=== PATIENT | female | born 2000 | race Caucasian/White ===

== ENCOUNTER 2018-05-19 20:48 | Emergency (ER) | payer OTHER ==
[2018-05-19] MEDS ORDERED: NS 1,000 ML IV ONE (22:00)
[2018-05-19] MEDS ORDERED: METOCLOPRAMIDE 10 MG/2 ML VIAL IVP ONE (22:00)
[2018-05-19] MEDS ORDERED: KETOROLAC 30 MG/1 ML SDV IVP ONE (22:00)
[2018-05-19] MEDS ORDERED: DEXAMETHASONE 10 MG/ML VIAL IVP ONE (22:00)
[2018-05-19] MEDS ORDERED: DEXAMETHASONE 4 MG/ML VIAL ONE (22:08)
--- NOTE | 2018-05-19 22:11 | EDPHY ---
H & P Time Seen by Provider: 05/19/18 21:46 HPI/ROS: CHIEF COMPLAINT: Headache, persistent HISTORY OF PRESENT ILLNESS: Patient started having headache a earlier this week on Tuesday. It is bifrontal and she feels like her eyes were throbbing and it is worse with light and associated with nausea. Her grandfather has migraine headaches but otherwise negative family history for intracranial. She has been a lot of time Tuesday looking at her computer and Tuesday she had nausea and vomiting. she saw her primary care provider and was encouraged to hydrate try [id number] medications went back today and had 2 shots, the names of which she does not know. She presents with persistent headache which is moderate, described above REVIEW OF SYSTEMS: Eye: No aura, no blurry vision or double vision. ENT: no sore throat or earache Cardiac: no chest pain or syncope Pulmonary: no cough or SOB Abdomen: No abdominal pain or diarrhea Musculoskeletal: A little bit of neck pain but no neck stiffness Skin: no rash Neuro: HPI Constitutional: no fever : no urinary symptoms A comprehensive 10 point review of systems is otherwise negative aside from elements mentioned in the history of present illness. PAST MEDICAL HISTORY: Negative Family history: Negative for aneurysm or migraine headache except as noted in HPI Social history: Student, no IV drug abuse General Appearance: Alert and conversant, cooperative. Eyes: No scleral icterus. Pupils equal reactive extraocular motion intact. ENT, Mouth: Normal mucous membranes. Normal tympanic membranes, normal pharynx. No facial swelling or tenderness. Respiratory: Normal respiratory effort, breath sounds equal, lungs are clear to auscultation. Cardiovascular: Regular rate and rhythm. Gastrointestinal: Abdomen is soft and non tender. Neurological: Alert, face symmetric, normal motor and sensory in extremities. Normal [id number] bilaterally, no pronator drift. Speech fluent. Skin: Warm and dry, no rashes. Musculoskeletal: No neck stiffness or meningeal signs. Psychiatric: Not agitated. Emergency Department course/MDM: Likely migraine, will treat with IV Toradol and dexamethasone, IV Benadryl, promethazine. CT head discussed and consented for persistent headache for 5 days. 2251; normal head CT per Dr. Celeste. She feels better at this time, is comfortable going home and follow up with her primary care doctor. I think [employer] infection or subarachnoid is unlikely. Smoking Status: Never smoked Constitutional: Initial Vital Signs Temperature (C) 36.8 C 05/19/18 21:03 Heart Rate 85 05/19/18 21:03 Respiratory Rate 18 05/19/18 21:03 Blood Pressure 124/82 H 05/19/18 21:03 O2 Sat (%) 96 05/19/18 21:03 Allergies/Adverse Reactions: No Known Allergies Allergy (Unverified 05/19/18 21:03) Home Medications: Medication Instructions Recorded MIRENA 05/19/18 Medical Decision Making - Diagnostics Imaging: Discussed imaging studies w/ call out operator Radiologist Differential Diagnosis: Differential diagnosis considered for headache including but not limited to subarachnoid hemorrhage, migraine headache, tension headache and infectious causes such as meningitis, pharyngitis and sinusitis. - Data Points Medications Given: Discontinued Medications Dexamethasone (Decadron Injection) 10 mg IVP EDNOW ONE Stop: 05/19/18 22:01 Last Admin: 05/19/18 22:15 Dose: 10 mg Diphenhydramine HCl (Benadryl Injection) 25 mg IVP EDNOW ONE Stop: 05/19/18 22:01 Last Admin: 05/19/18 22:15 Dose: 25 mg Sodium Chloride (Ns) 1,000 mls @ 0 mls/hr IV ONCE ONE; Wide Open PRN Reason: Protocol Stop: 05/19/18 22:01 Last Admin: 05/19/18 22:15 Dose: 1,000 mls Ketorolac Tromethamine (Toradol) 15 mg IVP EDNOW ONE Stop: 05/19/18 22:01 Last Admin: 05/19/18 22:15 Dose: 15 mg Metoclopramide HCl (Reglan Injection) 10 mg IVP EDNOW ONE Stop: 05/19/18 22:01 Last Admin: 05/19/18 22:16 Dose: 10 mg Departure - Departure Disposition: Home, Routine, Self-Care Clinical Impression: Headache Qualifiers: Headache type: unspecified Headache chronicity pattern: acute headache Intractability: not intractable Qualified Code(s): R51 - Headache Condition: Good Instructions: Acute Headache (ED) Referrals: Keke Hatfield MD [[facility] [place] - As per Instructions
[2018-05-19 23:06] VITALS: BP 118/68
== END 2018-05-19 23:06 | disposition home or self-care (01) ==
DX: R51 Headache (principal); E86.9 Volume depletion, unspecified
CPT/HCPCS: 96374; J1100; J1200; J1885; J2765

== ENCOUNTER 2018-11-16 16:53 | Emergency (ER) | payer OTHER ==
--- NOTE | 2018-11-16 17:51 | EDPHY ---
H & P Stated Complaint: RLQ abd pain, ovarian mass on US per UC Time Seen by Provider: 11/16/18 17:50 HPI/ROS: HPI: This is a 18-year-old female who presents with Chief Complaint: RLQ abd pain, ovarian mass on US per UC Location: Right lower quadrant abdominal Quality: Pain Duration: Since 9:00 a.m. Signs and Symptoms: no fever, no nausea, no vomiting, no hematemesis, no blood in stool, no abdominal bloating, no diarrhea, no back pain, no urinary symptoms , no vaginal bleeding/discharge, no indigestion, no chest pain, no shortness of breath Timing: Acute, constant Severity: 01/17 Context: Patient is a student at [employer]. Does not have regular menses as has an Merina IUD. Complains of waking up this morning around 9:00 a.m. With moderate to severe right lower quadrant pain that is nonradiating in nature. She denies fever, nausea, vomiting, urinary symptoms, back pain, vaginal bleeding, vaginal discharge. She does work out very frequently including abdomen exercises. Last bowel movement yesterday. Reports eating and drinking well. Went to [facility] and had a pelvic ultrasound performed that showed 4.3 cm bilobed solid-appearing mass within the right adnexa to superior to the right ovary, benign-appearing left ovarian follicle cyst and IUD in appropriate position; abdominal ultrasound was unable to visualize the appendix. Modifying Factors: Comment: ROS: A comprehensive 10 system review of systems is otherwise negative aside from elements mentioned in the history of present illness. MEDICAL/SURGICAL/SOCIAL HISTORY: Medical history: Migraine headaches, depression. Does not take any regular medications. Maribel IUD. Surgical history: Denies Social history: Student at [employer]. Nonsmoker. Family history noncontributory. CONSTITUTIONAL: Extremely well-appearing young adult white female, awake and alert, no obvious distress HEENT: Atraumatic and normocephalic, PERRL, EOMI. Nares patent; no rhinorrhea; no nasal mucosal edema. Tympanic membranes clear. Oropharynx clear, no exudate and moist pink mucosa. Airway patent. No lymphadenopathy. No meningismus. Cardiovascular: Normal S1/S2, regular rate, regular rhythm, without murmur rub or gallop. PULMONARY/CHEST: Symmetrical and nontender. Clear to auscultation bilaterally. Good air movement. No accessory muscle usage. ABDOMEN: Soft, nondistended, moderate right lower quadrant tenderness to deep palpation, no rebound, no guarding, no peritoneal signs, no masses or organomegaly. No CVAT. Bowel sounds heard x4 quadrants. Negative Rovsing sign. Negative psoas sign. EXTREMITIES: 2/2 pulses, strength 5/5, no deformities, no clubbing, no cyanosis or edema. NEUROLOGICAL: no focal neuro deficits. GCS 15. SKIN: Warm and dry, no erythema. no rash. Good capillary refill. Source: Patient Exam Limitations: No limitations - Personal History Current Tetanus/Diphtheria Vaccine: Yes Current Tetanus Diphtheria and Acellular Pertussis (TDAP): Yes - Medical/Surgical History Hx Asthma: No Hx Chronic Respiratory Disease: No Hx Diabetes: No Hx Cardiac Disease: No Hx Renal Disease: No Hx Cirrhosis: No Hx Alcoholism: No Hx HIV/AIDS: No Hx Splenectomy or Spleen Trauma: No Other PMH: migraines, - Social History Smoking Status: Never smoked Constitutional: Initial Vital Signs Temperature (C) 36.9 C 11/16/18 17:02 Heart Rate 93 11/16/18 17:02 Respiratory Rate 16 11/16/18 17:02 Blood Pressure 132/83 H 11/16/18 17:02 O2 Sat (%) 96 11/16/18 17:02 O2 Delivery Mode Room Air Allergies/Adverse Reactions: No Known Allergies Allergy (Unverified 11/16/18 17:02) Home Medications: Medication Instructions Recorded MIRENA 05/19/18 FLUoxetine 11/16/18 Medical Decision Making - Diagnostics Imaging Results: Imaging Impressions Abdomen CT 11/16/18 17:57 Impression: 1. Normal CT appearance of the appendix. 2. There is no evidence of a mechanical bowel obstruction, free air, or ascites. 3. There is an intrauterine device present. 4. There is a 3.6 cm simple-appearing left ovarian cyst, and the right ovary is seen in the limited fashion, and appears to contain a small involuting hemorrhagic follicle. Correlation with today's earlier ultrasound is suggested, which would be more sensitive in evaluation of the right ovary, and consider follow up sonography at a different point in a future menstrual cycle in the next 6-8 weeks. Findings were discussed with Mariama Burciaga PA-C at 19:39, on 11/16/2018. ED Course/Re-evaluation: Vital signs reviewed and stable upon arrival. No systemic signs. IV access, laboratory studies, urinalysis, CT abdomen and pelvis scan ordered Given 1 L normal saline, IV Toradol 30 mg and IV promethazine 12.5 mg 1846: Laboratory studies reviewed. WBC 12 K with left shift. No signs of anemia, platelet dysfunction, electrolyte disturbance, acute kidney injury, elevated LFTs, pancreatitis, . 1855: Urinalysis shows 2+ blood, trace LE 1745: Called by Dr. Umaña, radiologist, who reports that CT abdomen and pelvis scan shows hemorrhagic follicle measuring 2.2 cm in the right ovary and 3.6 cm left ovarian simple cyst. No ovarian torsion. No appendicitis. Moderate stool burden. Recommends repeat ultrasound in 6-8 weeks. Long discussion at bedside regarding results per patient. She has a primary care provider at [facility]. She is tolerating p.o. With adequate pain relief And will be discharged home. This patient was seen under the supervision of my secondary supervising physician. I evaluated and cared for this patient with attending. Differential Diagnosis: Abdominal pain including but not limited to appendicitis, cholecystitis, gastritis and urinary tract infection. Abdominal pain in a female including but not limited to ovarian cyst, pelvic inflammatory disease, ovarian torsion, urinary tract infection, and appendicitis. - Data Points Laboratory Results: Laboratory Results 11/16/18 17:57 11/16/18 17:43 11/16/18 11/16/18 11/16/18 18:10 17:57 17:43 WBC 12.09 10^3/uL H 10^3/uL (3.80-9.50) RBC 5.13 10^6/uL 10^6/uL (4.18-5.33) Hgb 15.8 g/dL g/dL (12.6-16.3) Hct 46.2 % % (38.0-47.0) MCV 90.1 fL fL (81.5-99.8) MCH 30.8 pg pg (27.9-34.1) MCHC 34.2 g/dL g/dL (32.4-36.7) RDW 12.6 % % (11.5-15.2) Plt Count 294 10^3/uL 10^3/uL (150-400) MPV 9.4 fL fL (8.7-11.7) Neut % (Auto) 80.3 % H % (39.3-74.2) Lymph % (Auto) 12.5 % L % (15.0-45.0) [place] % (Auto) 6.5 % % (4.5-13.0) Eos % (Auto) 0.1 % L % (0.6-7.6) Baso % (Auto) 0.2 % L % (0.3-1.7) Nucleat RBC Rel Count 0.0 % % (0.0-0.2) Absolute Neuts (auto) 9.72 10^3/uL H 10^3/uL (1.70-6.50) Absolute Lymphs (auto) 1.51 10^3/uL 10^3/uL (1.00-3.00) Absolute Monos (auto) 0.78 10^3/uL 10^3/uL (0.30-0.80) Absolute Eos (auto) 0.01 10^3/uL L 10^3/uL (0.03-0.40) Absolute Basos (auto) 0.02 10^3/uL 10^3/uL (0.02-0.10) Absolute Nucleated RBC 0.00 10^3/uL 10^3/uL (0-0.01) Immature Gran % 0.4 % % (0.0-1.1) Immature Gran # 0.05 10^3/uL 10^3/uL (0.00-0.10) Sodium Potassium Chloride Carbon Dioxide Anion Gap BUN Creatinine Estimated GFR Glucose Calcium Total Bilirubin Conjugated Bilirubin Unconjugated Bilirubin AST ALT Alkaline Phosphatase Total Protein Albumin Lipase Beta HCG, Qual NEGATIVE Urine Color YELLOW Urine Appearance CLEAR Urine pH 7.0 (5.0-7.5) Ur Specific [place] 1.009 (1.002-1.030) Urine Protein NEGATIVE (NEGATIVE) Urine Ketones NEGATIVE (NEGATIVE) Urine Blood 2+ H (NEGATIVE) Urine Nitrate NEGATIVE (NEGATIVE) Urine Bilirubin NEGATIVE (NEGATIVE) Urine Urobilinogen NEGATIVE EU EU (0.2-1.0) Ur Leukocyte Esterase TRACE H (NEGATIVE) Urine RBC 1-3 /hpf /hpf (0-3) Urine WBC 1-3 /hpf /hpf (0-3) Ur Epithelial Cells TRACE /lpf /lpf (NONE-1+) Urine Bacteria TRACE /hpf H /hpf (NONE SEEN) Urine Glucose NEGATIVE (NEGATIVE) 11/16/18 17:43 WBC RBC Hgb Hct MCV MCH MCHC RDW Plt Count MPV Neut % (Auto) Lymph % (Auto) [place] % (Auto) Eos % (Auto) Baso % (Auto) Nucleat RBC Rel Count Absolute Neuts (auto) Absolute Lymphs (auto) Absolute Monos (auto) Absolute Eos (auto) Absolute Basos (auto) Absolute Nucleated RBC Immature Gran % Immature Gran # Sodium 138 mEq/L mEq/L (135-145) Potassium 3.8 mEq/L mEq/L (3.5-5.2) Chloride 101 mEq/L mEq/L (97-110) Carbon Dioxide 23 mEq/l mEq/l (22-31) Anion Gap 14 mEq/L mEq/L (6-14) BUN 10 mg/dL mg/dL (7-23) Creatinine 0.7 mg/dL mg/dL (0.6-1.0) Estimated GFR > 60 Glucose 97 mg/dL mg/dL (70-100) Calcium 10.4 mg/dL mg/dL (8.5-10.4) Total Bilirubin 0.7 mg/dL mg/dL (0.1-1.4) Conjugated Bilirubin 0.2 mg/dL mg/dL (0.0-0.5) Unconjugated Bilirubin 0.5 mg/dL mg/dL (0.0-1.1) AST 24 IU/L IU/L (14-46) ALT 31 IU/L IU/L (9-52) Alkaline Phosphatase 61 IU/L IU/L (38-126) Total Protein 8.2 g/dL g/dL (6.3-8.2) Albumin 5.2 g/dL H g/dL (3.5-5.0) Lipase 62 IU/L IU/L (23-300) Beta HCG, Qual Urine Color Urine Appearance Urine pH Ur Specific [place] Urine Protein Urine Ketones Urine Blood Urine Nitrate Urine Bilirubin Urine Urobilinogen Ur Leukocyte Esterase Urine RBC Urine WBC Ur Epithelial Cells Urine Bacteria Urine Glucose Medications Given: Discontinued Medications Sodium Chloride (Ns) 1,000 mls @ 0 mls/hr IV EDNOW ONE; Wide Open PRN Reason: Protocol Stop: 11/16/18 17:58 Last Admin: 11/16/18 18:20 Dose: 1,000 mls Ketorolac Tromethamine (Toradol) 30 mg IVP EDNOW ONE Stop: 11/16/18 17:58 Last Admin: 11/16/18 18:20 Dose: 30 mg Ondansetron HCl (Zofran) 4 mg IVP EDNOW ONE Stop: 11/16/18 18:25 Last Admin: 11/16/18 18:27 Dose: 4 mg Promethazine HCl (Phenergan) 12.5 mg IVP EDNOW ONE Stop: 11/16/18 17:58 Last Admin: 11/16/18 18:22 Dose: Not Given Departure - Departure Disposition: Home, Routine, Self-Care Clinical Impression: Bilateral ovarian cysts, Constipation by delayed colonic transit Condition: Good Instructions: Ovarian Cyst (ED), Constipation (ED), High Fiber Diet (ED), Ruptured Ovarian Cyst (ED) Additional Instructions: Consume a minimum of 8-10 glasses of water or electrolyte fluid replacement drinks that include Gatorade, Powerade, Pedialyte. Eat a bland diet for the next 48 hours and then slowly advance as tolerated. Take MiraLax daily for the next 3 days and then daily as needed for constipation. Follow-up with PCP/OBGYN in 6-8 weeks for repeat ultrasound for interval change of bilateral ovarian cyst. Referrals: Marge Zhang MD [Primary Care Provider] - As per Instructions
[2018-11-16] MEDS ORDERED: PROMETHAZINE HCL 25 MG/ML INJ IVP ONE (17:57)
[2018-11-16] MEDS ORDERED: NS 1,000 ML IV ONE (17:57)
[2018-11-16] MEDS ORDERED: KETOROLAC 30 MG/1 ML SDV IVP ONE (17:57)
[2018-11-16 18:15] LABS: PLATELET COUNT 294 10^3/uL (150-400)
[2018-11-16] MEDS ORDERED: ONDANSETRON 4 MG/2 ML VIAL IVP ONE (18:24)
[2018-11-16] MEDS ORDERED: IOPAMIDOL (ISOVUE-300) 100 ML BTL ONE (18:52)
[2018-11-16 19:52] VITALS: BP 118/75
== END 2018-11-16 19:51 | disposition home or self-care (01) ==
DX: R10.31 Right lower quadrant pain (principal); N83.201 Unspecified ovarian cyst, right side; N83.202 Unspecified ovarian cyst, left side; K59.00 Constipation, unspecified; E86.9 Volume depletion, unspecified
CPT/HCPCS: 96374; J1885; J2405; J2550; Q9967